=== PATIENT | female | born 2000 | race African-American/Black ===

== ENCOUNTER 2023-08-17 11:05 | Emergency (ER) | payer OTHER ==
[~2023-08-17] VITALS: Ht 170.2 cm; Wt 55.0 kg
[2023-08-17 11:07] VITALS: BP 130/77; PULSE 85; RESP 16; TEMP 98.3; O2SAT 100
[2023-08-17] MEDS ORDERED: DIPHENHYDRAMINE 25MG CAPSULE PO ONE (11:30)
[2023-08-17] MEDS ORDERED: IBUPROFEN 600MG TABLET PO ONE (11:30)
== END 2023-08-17 12:09 ==
LOC: ER 11:05
DX: S05.11XA Contusion of eyeball and orbital tissues, right eye, initial encounter (principal); X58.XXXA Exposure to other specified factors, initial encounter; Y93.89 Activity, other specified; Y92.89 Other specified places as the place of occurrence of the external cause; Y99.8 Other external cause status
CPT/HCPCS: 99283